=== PATIENT | female | born 1970 | race Caucasian/White ===

== ENCOUNTER → 2016-07-28 | Day surgery (SDC) | payer BC ==
--- NOTE | 2016-07-22 20:09 | MH ---
cc: SATISH CADE M.D., CHRISTOPHER DATE OF ADMISSION: 07/28/2016 REASON FOR ADMISSION: Perineoplasty and pelvic repair. HISTORY OF PRESENT ILLNESS: The patient is a 45-year-old white female 3, para 3 who has had issues with symptomatology consistent with loss of perineal body. She notes issues with vaginal laxity as well as pelvic pressure and discomfort. After long discussion, the patient has opted for pelvic repair. PAST MEDICAL HISTORY: The patient's medical history is negative for heart, lung, liver disease, hypertension, diabetes or stroke. PAST SURGICAL HISTORY: 1. Operative vaginal delivery with forceps and extensive laceration. 2. Endometrial ablation. 3. Bilateral arthroscopy of the knee. 4. Breast implant x2. 5. Diagnostic laparoscopy. ALLERGIES: TETRACYCLINE. DIRECTOR TRANSPORTATION HISTORY: NO STD's or abnormal Pap smears. No significant bleeding since her ablation. OBSTETRICAL HISTORY: Two deliveries, one forceps delivery. FAMILY HISTORY: Noncontributory SOCIAL HISTORY: , has good social support. 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 No alcohol, tobacco, or caffeine. FAMILY HISTORY: Noncontributory. REVIEW OF SYSTEMS: Review of systems as above. No chest pain, orthopnea, PND. No nausea, vomiting, fevers, chills. No vaginal bleeding or discharge. Remainder of 14-point review negative. PHYSICAL EXAMINATION: VITAL SIGNS: On her exam, she is afebrile. Vital signs stable. Blood pressure is 120/70. HEIGHT: 5 feet 5. WEIGHT: 135. BMI: 22.5. GENERAL: The patient is alert and oriented and in no acute distress. No sign of cognitive dysfunction or depression. HEAD, EYES, EARS, NOSE, THROAT: Within normal limits. NECK: The neck is supple. No jugular venous distention. CHEST: Clear. HEART: Regular rate and rhythm. ABDOMEN: Abdomen soft and nontender. No hepatosplenomegaly. No tenderness. PELVIC EXAM: Pelvic exam in the office shows Aa is minus 2, Ap is minus 1. Point C is minus 6. Genital hiatus is 6. Perineal body is 1. Total vaginal length is 10. Levator strength is 4/5. Sacral nerve reflexes are normal. Further exam under anesthesia. EXTREMITIES: Normal skin without rashes. No DVT. NEUROLOGIC: Nonfocal. ASSESSMENT: A patient with loss of perineal body with subsequent vaginal laxity and pelvic pressure and discomfort. The patient and I discussed at length the options for management and treatment. She is aware of the risks, benefits, and alternatives of the planned procedure including damage to surrounding organs, bleeding, infection, breakdown of repair, failure of repair, dyspareunia. The patient has made informed choice to proceed. The patient is aware that there may be other pelvic floor defects that are more obvious under anesthesia and she agrees to the repair of any subsequent or additional anterior or posterior wall defect. At this point, anticipate outpatient procedure. We will use antibiotic prophylaxis with Ancef 2 grams and DVT prophylaxis with sequential compression devices. MD TIAN Mehta/CHUCK /4:26 PM /7:49 PM [id number]
[~2016-07-28] VITALS: Ht 165.1 cm; Wt 68.0 kg
[~2016-07-28] MED LIST: *MEPERIDINE 25 MG INJ VIAL PERIprocedural Use ONLY ONE; APREPITANT 40 MG CAP ONE; CHLORHEXIDINE GLUCONATE 2 % 1 PACK (2 CLOTHS) TOPICAL PRN; DEXAMETHASONE SOD PHOS 4 MG/ML VIAL ONE; DO NOT ADM ANY ANTICOAGULANT DRUGS PRN; DOCU1CAP21 PO; INSULIN HUMAN REGULAR 1,000 UNITS/10 ML VIAL SQ PRN; KETOROLAC TROMETHAMINE 10 MG TAB PO PRN; KETOROLAC TROMETHAMINE 30 MG/ML (IVP) VIAL IV PUSH PRN; KETOROLAC TROMETHAMINE 60 MG/2 ML (IM) VIAL IM ONE; LACTATED RINGER'S 1000 ML INJ 1,000 ML IV ONE; LACTATED RINGER'S 1000 ML IV PRN; LIDOCAINE 1%/EPINEPHrine 1:100,000 SOLN 50 ML VIAL INFIL ONE; METOPROLOL TARTRATE 25 MG TAB PO PRN; MIDAZOLAM HCL 2 MG/2 ML VIAL ONE; NEOSTIGMINE 3 MG/3 ML SYR IV ONE; ONDANSETRON HCL 4 MG/2 ML VIAL IV PRN; ONDANSETRON HCL 4 MG/2 ML VIAL IV PUSH ONE; POVIDONE IODINE 5% (ANTISEPSIS KIT) 4 APPLICATIONS EACH NARE PRN; PROPOFOL 200 MG/20 ML AMP IV ONE; SODIUM CHLORID 0.9% 500 ML IV PRN; ceFAZolin 2 GM PREMIX 50 ML IV SCH; ceFAZolin 2 GM PREMIX 50 ML ONE; fentaNYL CITRATE 250 MCG/5 ML AMP ONE
[2016-07-28 07:48] VITALS: BP 142/91; PULSE 78; RESP 16; TEMP 98.2; O2SAT 100
--- NOTE | 2016-07-28 11:46 | MP ---
cc: IZZY LOPEZ,SATISH CUBA MD DATE OF SURGERY: 07/28/2016 PREOPERATIVE DIAGNOSES 1. Vaginal laxity with a loss of perineal body. 2. Microscopic hematuria. POSTOPERATIVE DIAGNOSIS 1. Vaginal laxity with a loss of perineal body. 2. Microscopic hematuria. 3. Mild trigonitis/distal urethritis. 4. Rectocele and enterocele PROCEDURE 1. Posterior repair with enterocele repair. 2. Perineoplasty 3. External sphincteroplasty(end to end) 4. Diagnostic cystoscopy; coupled with a diagnosis of hematuria should be a separate procedure. SURGEON Dr. Monte ANESTHESIA Laryngeal mask. ESTIMATED BLOOD LOSS 20 cc. URINE OUTPUT 300 cc prior to case. FLUIDS 1000 cc crystalloid. INTEGRATION ENGINEER [place] staff x2. FINDINGS External genitalia normal. POP-Q score: Aa is -2; Ap is +1; point C is -6; total vaginal length is 10; genital hiatus is 7; perineal body is 2. Following repair Ap is -3; genital hiatus is 4; perineal body 5. Rectal exam is normal following repair. Cystoscopy shows mild trigonitis, some distal urethritis with no lesions requiring biopsy, no ominous ulcerations, polyps or other significant findings. Ureteral orifices patent x2. Dome of the bladder unremarkable. SPECIMENS None. COMPLICATIONS None. DISPOSITION Recovery room stable. COUNTS Needle and sponge counts correct. DRAINS Johnson catheter. PROPHYLAXIS Antibiotic prophylaxis: Two grams Ancef. DVT prophylaxis: Sequential compression device. Timeout procedure per protocol. SUMMARY OF INDICATION FOR PROCEDURE Patient with symptomatic loss of perineal body. Also had microscopic hematuria noted on urinalysis. DETAILS OF PROCEDURE The patient was taken to the operating theatre, identified, prepped and draped in a fashion appropriate for planned procedure. She was in the dorsal lithotomy position with careful attention paid to placement of the legs in the stirrups to avoid undue stress to sensitive neurovascular structures. Above findings noted. Neurovascular integrity documented. Johnson catheter was placed. The exam under anesthesia showed significantly more posterior wall prolapse than we had appreciated in the office. We also noted a defect in the external sphincter from approximately 11 o'clock to 2 o'clock position. A modified pudendal block was performed. We then marked out the extent of the musculature in the perineal body, made a U-type incision, removed a portion of the perineal body prior to dissection of the posterior wall. The posterior wall was dissected. The tissues had some decreased tensile strength but there was no damage to the rectum. We took the dissection up to the cervix and noted enterocele. The rectocele was repaired in standard fashion with delayed absorbable suture. The enterocele was also dealt with, with delayed absorbable suture. Hemostatic matrix was used to obviate the need for packing. The rectal exam was repeated. We identified the areas of defect and these were all repaired without complication. The vaginal mucosa was trimmed. We then closed the vaginal mucosa with a running Vicryl suture to the level of the hymen remnant. An external sphincteroplasty was performed in an end-to-end fashion without complication or damage to the rectum. We then re-approximated the transverse perineal muscle and the bulbocavernosus to rebuild the perineal body from 2 cm to approximately 5. A subcuticular stitch was used to close the skin edges. The suture line was inspected, found to be intact. Postoperative POP-Q score as noted above. Basically we closed the vaginal introitus to approximately 4 cm and built the perineal body up to 5. In light of history of microscopic hematuria a cystoscopy was performed with the above findings. The only significant finding was mild trigonitis and distal urethritis. The procedure was concluded. The patient was reversed from anesthesia and taken to the recovery room in stable condition. Anticipate discharge if meets criteria and has good pain control. MD TIAN Mehta/MAURILIO /10:55 AM /11:18 AM JEFFREY
[2016-07-28 12:50] VITALS: BP 121/87; PULSE 68; RESP 18; O2SAT 98
== END | disposition home or self-care (01) ==
LOC: HSDC 06:56
PROVIDERS: ATTEND Obstetrics & Gynecology Gynecology
DX: N81.89 Other female genital prolapse (principal); N81.6 Rectocele; N81.5 Vaginal enterocele; N30.31 Trigonitis with hematuria; I10 Essential (primary) hypertension
CPT/HCPCS: 00902; 52000; 57250; J0690; J1100; J1885; J2175; J2250; J2405; J2710; J3010; J7120; J8501